=== PATIENT | female | born 1945 | race Caucasian/White ===

== ENCOUNTER → 2016-08-13 | Outpatient (CLI) | payer OTHER ==
--- NOTE | 2016-08-13 09:39 | US ---
Complete Pelvic Sonography (Transabdominal and Endovaginal) Clinical History: 71-year-old female with pelvic pressure for one and a half months. Her LMP was artemio roximately 30 years ago, and she is G2, P2. ICD-10 Diagnostic Code: R10.2. Technique: A curvilinear 5 MHz transducer was used to sonographically evaluate the pelvis using a ful l urinary bladder as a window. To better assess the uterine architecture and the adnexal structures, endovaginal pelvic sonography was also performed. Color Doppler and spectral Doppler are used. Comparison Study: None. Findings: Transabdominal Pelvic Sonography: The uterus is normal in size, shape, and position. The right and le ft adnexal regions are obscured by bowel gas. Endovaginal Pelvic Sonography: The endometrium is normal, measuring 4.4 mm. There is no focal myometr ial abnormality. The uterus measures 6.4 x 3.8 x 3.6 cm. The right ovary measures 1.2 x 0.6 x 1.2 cm, and the left ovary measures 1.2 x 0.7 x 1.4 cm. Intraovarian vascular flow is documented. There are some mildly prominent pelvic venous varices, with a right-sided vessel measuring 5.6 mm and left-side d vessels measuring between 4.0 and 5.2 mm. Impression: 1. Normal postmenopausal appearance of the uterus, endometrium, and ovaries with no solid or cystic a dnexal mass, torsion, or free fluid. 2. Mild bilateral pelvic venous congestion.
== END ==
LOC: BMCIMAGING 08:35
PROVIDERS: ATTEND Internal Medicine
DX: R10.2 Pelvic and perineal pain (principal)

== ENCOUNTER → 2016-10-05 | Outpatient (CLI) | payer OTHER ==
[~2016-10-05] MED LIST: IOPAMIDOL (ISOVUE-370) 150 ML BTL IV ONE
[2016-10-05 14:47] LABS: CREATININE 0.8 mg/dL (0.6-1.0); GLOMERULAR FILTRATION RATE > 60
== END ==
LOC: FIMAGING 14:03
PROVIDERS: ATTEND Physician Assistant Medical
DX: R51 Headache (principal)
CPT/HCPCS: 70496; Q9967

== ENCOUNTER → 2017-02-04 | Outpatient (CLI) | payer OTHER | LOC: FIMAGING 07:58 | DX: Z12.31 Encounter for screening mammogram for malignant neoplasm of breast (principal); Z80.3 Family history of malignant neoplasm of breast | CPT/HCPCS: G0202 ==

== ENCOUNTER → 2017-02-14 | Outpatient (CLI) | payer OTHER | LOC: FIMAGING 12:04 | PROVIDERS: ATTEND Internal Medicine | DX: R92.8 Other abnormal and inconclusive findings on diagnostic imaging of breast (principal); Z80.3 Family history of malignant neoplasm of breast | CPT/HCPCS: 76641; G0206 ==

== ENCOUNTER → 2017-02-18 | Outpatient (CLI) | payer OTHER ==
[~2017-02-18] MED LIST changes: +GADOBUTROL 10 ML VIAL IVP ONE; -IOPAMIDOL (ISOVUE-370) 150 ML BTL IV ONE
== END ==
LOC: FIMAGING 17:33
PROVIDERS: ATTEND Internal Medicine
DX: R92.8 Other abnormal and inconclusive findings on diagnostic imaging of breast (principal)
CPT/HCPCS: 0159T; A9585; C8908

== ENCOUNTER → 2018-02-06 | Outpatient (CLI) | payer OTHER | LOC: BMCIMAGING 08:42 | PROVIDERS: ATTEND Internal Medicine | DX: Z12.31 Encounter for screening mammogram for malignant neoplasm of breast (principal); Z80.3 Family history of malignant neoplasm of breast ==

== ENCOUNTER → 2018-02-28 | Outpatient (CLI) | payer OTHER | LOC: BMCIMAGING 13:21 | PROVIDERS: ATTEND Internal Medicine | DX: I51.7 Cardiomegaly (principal) ==